=== PATIENT | female | born 1970 | race Caucasian/White ===

== ENCOUNTER 2025-03-14 13:01 | Emergency (ER) | payer MEDICAID ==
[~2025-03-14] VITALS: Ht 162.6 cm; Wt 64.0 kg
[2025-03-14 13:05] VITALS: O2SAT 99
[2025-03-14] MEDS: SODIUM CHLORIDE 0.9% 1,000 ML IV ONE (13:48)
[2025-03-14] MEDS: ONDANSETRON HCL 4MG/2ML INJ IV ONE (13:48)
[2025-03-14] MEDS: KETOROLAC 15MG/ML VIAL IV ONE (13:48)
[2025-03-14 14:08] LABS: CLARITY URINE CLEAR (CLEAR); COLOR URINE YELLOW (YELLOW); GLUCOSE URINE NEGATIVE (NEGATIVE); KETONES URINE NEGATIVE (NEGATIVE); LEUKOCYTE ESTERASE URINE 1+ (NEGATIVE); NITRITE URINE NEGATIVE (NEGATIVE); OCCULT BLOOD URINE 2+ (NEGATIVE); PH URINE 6.5 (4.5-8.0); PROTEIN URINE NEGATIVE (NEGATIVE); SPECIFIC GRAVITY URINE 1.021 (1.005-1.030); UROBILINOGEN URINE 0.2 E.U./dL (0.2-1.0)
[2025-03-14] MEDS: HYDROMORPHONE HCL/PF 2MG/ML INJ IV NR (14:10)
[2025-03-14] MEDS: HYDROMORPHONE HCL/PF 2MG/ML INJ IV ONE (14:10)
[2025-03-14 14:20] LABS: BASOPHILS % 0.5 % (0.0-2.0); EOSINOPHILS % 2.4 % (0.0-5.0); HEMATOCRIT. 30.1 % (36.0-48.0); HEMOGLOBIN. 9.3 g/dL (12.0-16.0); LYMPHOCYTES % 46.6 % (20.0-50.0); MEAN PLATELET VOLUME 7.3 fl (7.4-10.4); MONOCYTES % 5.1 % (2.0-8.0); NEUTROPHILS % 45.4 % (40.0-76.0); PLATELET 232 x1000/uL (130-400); RED BLOOD CELL COUNT 4.05 mill/uL (4.2-5.4); RED CELL DISTRIBUTION WIDTH 15.3 % (11.6-14.6)
[2025-03-14] MEDS: DIPHENHYDRAMINE 50MG/ML VIAL IV ONE ×2 (14:26→15:59)
[2025-03-14 14:31] LABS: SQUAMOUS EPITHELIAL CELL URINE 2+ /lpf (RARE/1+)
[2025-03-14 14:32] LABS: CREATININE 0.6 mg/dL (0.6-1.0); UREA NITROGEN BLOOD 13 mg/dL (9-23)
[2025-03-14 14:32] LABS: RBC URINE 15-25 /hpf (0-2); WBC URINE 15-25 /hpf (0-2)
[2025-03-14 14:34] LABS: BACTERIA URINE TRACE
[2025-03-14] MEDS: CEFTRIAXONE 1GM/50ML 50 ML IV ONE (15:30)
[2025-03-14] MEDS: PANTOPRAZOLE SODIUM 40 MG/VIAL IV ONE (15:58)
[2025-03-14] MEDS: MORPHINE SULFATE 4 MG/ML INJ (FOR IV/IM USE) IV ONE (15:58)
[2025-03-14] MEDS: MAGNESIUM 1 G PREMIX 100 ML IV ONE (16:00)
[2025-03-14] MEDS ORDERED: OXYC-105 MT (16:17)
[2025-03-14] MEDS ORDERED: CEPH500T MT (16:17)
[2025-03-14] MEDS: OXYCODONE HCL/ACETAMINOPHEN 5/325MG TABLET PO STA (16:29)
[2025-03-14 17:49] VITALS: BP 118/61; PULSE 80; RESP 19; TEMP 37.3; O2SAT 99
== END 2025-03-14 17:58 | disposition home or self-care (01) ==
LOC: ER 13:50
DX: N39.0 Urinary tract infection, site not specified (principal); R10.20 Pelvic and perineal pain unspecified side; I10 Essential (primary) hypertension; J45.909 Unspecified asthma, uncomplicated
CPT/HCPCS: 80048; 81003; 85025; 87086; 36415; 96368; 96365; 96366; 96375; 96376; 99285; J0696; J1200; J1885; J3475; J2405; J2470; J1171; J2270; J7030; Z7610